=== PATIENT | male | born 1960 | race Caucasian/White ===

== ENCOUNTER → 2023-09-29 06:48 | Day surgery (SDC) | payer OTHER, SELFPAY | LOC: GI 06:48 | PROVIDERS: ATTENDING PHYSICIAN Internal Medicine Gastroenterology; FAMILY PHYSICIAN Internal Medicine Cardiovascular Disease | DX: Z12.11 Encounter for screening for malignant neoplasm of colon (principal); K63.5 Polyp of colon; K57.30 Diverticulosis of large intestine without perforation or abscess without bleeding; K62.1 Rectal polyp; K64.8 Other hemorrhoids; Z86.010 Personal history of colon polyps | CPT/HCPCS: 45385; 45380; 88305 ==

== ENCOUNTER 2024-01-29 16:43 | Emergency (ER) | payer OTHER, SELFPAY ==
[2024-01-29 16:51] VITALS: BP 189/101
[2024-01-29 17:41] LABS: ALT (SGPT) 26 U/L (0-50); AST (SGOT) 30 U/L (17-59); Albumin 4.5 g/dl (3.5-5.0); Alkaline Phosphatase 84 U/L (38-126); Blood Urea Nitrogen 9 mg/dl (9-20); Calcium 9.2 mg/dl (8.4-10.2); Carbon Dioxide 29 mmol/L (22-30); Chloride 102 mmol/L (98-107); Glucose 93 mg/dl (70-99); Sodium 141 mmol/L (135-145); Total Protein 7.2 g/dl (6.3-8.2); eGFR > 60.00
[2024-01-29 17:43] LABS: % Basophils 0.5 % (0-2); % Eosinophils 2.2 % (0-6); % Immature Granulocytes 0.2 % (0-0.5); % Lymphocytes 30.7 % (20.5-51.1); % Monocytes 9.2 % (1.7-9.3); % Neutrophils 57.2 % (42.2-75.2); Absolute Eosinophils 0.1 10^3/uL (0-0.7); Absolute Lymphocytes 1.8 10^3/uL (1.2-3.4); Absolute Monocytes 0.6 10^3/uL (0.1-0.6); Absolute Neutrophils 3.4 10^3/uL (1.4-6.5); Hematocrit 41.9 % (39.0-52.0); Hemoglobin 14.3 g/dL (13.0-18.0); Mean Corp Hgb Conc. 34.1 g/dL (33.0-37.0); Mean Corpuscular Hgb 30.5 pg (27.0-31.0); Mean Corpuscular Volume 89.3 fL (80.0-94.0); Mean Platelet Volume 10.5 fL (7.4-10.4); Nucleated Red Blood Cells % 0 % (-); Platelet Count 274 10^3/uL (130-400); Red Blood Cell Count 4.69 10^6/uL (4.70-6.10); Red Cell Dist. Width 12.1 % (11.5-14.5)
[2024-01-29 20:17] VITALS: BP 186/102
--- NOTE | 2024-01-29 20:41 | ED.GENMED ---
History of Present Illness
<Sharon Manuel MD, Resident - Last Filed: 01/29/24 22:15>
General
Chief Complaint: Blood Pressure Problem
Source: patient and family
Time Seen by Provider: 01/29/24 20:07
History of Present Illness
History of Present Illness:
This is a 63-year-old male patient with past medical history of high blood pressure and BPH who presents to the ED with concerns of elevated blood pressure. He states that he recently started taking a new blood pressure medication losartan 50 Mg
once a day for the past 3 weeks that was started by his PCP. He states that he has been checking his blood pressure every day but has not noticed an improvement stating that his systolic BP has been in the 160s. He also feels as though he is
having heart palpitations and a headache had started this morning. He denies any fever, chills, vision changes or vomiting. He denies any history of falls.
Past History
<Sharon Manuel MD, Resident - Last Filed: 01/29/24 22:15>
Past History
ED Past Medical History: HTN
ED Past Surgical History: None
Social History
Tobacco: Non-smoker
Alcohol: Occasional
Personal:
Living: with family
Employment: Employed
Family History
Family History: Negative Early CAD or Sudden
Review of Systems
<Sharon Manuel MD, Resident - Last Filed: 01/29/24 22:15>
Review of Systems
Constitutional: Denies fever or chills
Respiratory: Denies cough
Cardiac: Reports palpitations; Denies chest pain
ABD/GI: Denies abdominal pain
Neurological: Reports headache; Denies dizzy
Phy Exam
<Sharon Manuel MD, Resident - Last Filed: 01/29/24 22:15>
General Physical Exam
General Presentation: well appearing and no apparent distress
Cardiovascular Exam
Cardiovascular Exam: regular rate/rhythm and no murmur
Heart Sounds: normal
Pulmonary Exam
Pulmonary Exam: lungs clear, no respiratory distress and no crackles
Gastrointestinal Exam
Gastrointestinal Exam: non tender, soft and non distended
Neurological Exam
Neurological Exam: oriented x3
Musculoskeletal Exam
Musculoskeletal Exam: no edema
Skin Exam
Skin Exam: warm/dry
Psychiatric Exam
Psychiatric Exam: normal mood/affect
Course
<Sharon Shreya Manuel MD, Resident - Last Filed: 01/29/24 22:15>
Orders/Labs/Results
Orders:
Orders
01/29/24 16:44
ECG [Electrocardiogram (*1)] Urgent
Reason for Study: Palpitations
EKG- Treatment ONCE
01/29/24 17:06
Complete Blood Count/With Diff Urgent
Comprehensive Metabolic Panel Urgent
01/29/24 21:01
Amlodipine [Norvasc] 5 mg PO NOW STA
Abnormal Lab Results
01/29/24
17:06
RBC 4.69 L 10^6/uL
(4.70-6.10)
MPV 10.5 H fL
(7.4-10.4)
01/29/24 17:06
01/29/24 17:06
Vital Signs
Initial and Last Documented VS:
Initial Vital Signs
Temp Pulse Resp BP Pulse Ox
98.1 F 60 20 189/101 100
01/29/24 16:51 01/29/24 16:51 01/29/24 16:51 01/29/24 16:51 01/29/24 16:51
Last Documented Vital Signs
Temp Pulse Resp BP Pulse Ox
98.1 F 58 20 186/102 98
01/29/24 16:51 01/29/24 20:17 01/29/24 16:51 01/29/24 20:17 01/29/24 20:17
<Casimiro Nolan, DO - Last Filed: 01/29/24 21:02>
Orders/Labs/Results
Orders:
Orders
01/29/24 16:44
ECG [Electrocardiogram (*1)] Urgent
Reason for Study: Palpitations
EKG- Treatment ONCE
01/29/24 17:06
Complete Blood Count/With Diff Urgent
Comprehensive Metabolic Panel Urgent
01/29/24 21:01
Amlodipine [Norvasc] 5 mg PO NOW STA
Abnormal Lab Results
01/29/24
17:06
RBC 4.69 L 10^6/uL
(4.70-6.10)
MPV 10.5 H fL
(7.4-10.4)
01/29/24 17:06
01/29/24 17:06
Vital Signs
Initial and Last Documented VS:
Initial Vital Signs
Temp Pulse Resp BP Pulse Ox
98.1 F 60 20 189/101 100
01/29/24 16:51 01/29/24 16:51 01/29/24 16:51 01/29/24 16:51 01/29/24 16:51
Last Documented Vital Signs
Temp Pulse Resp BP Pulse Ox
98.1 F 58 20 186/102 98
01/29/24 16:51 01/29/24 20:17 01/29/24 16:51 01/29/24 20:17 01/29/24 20:17
<Sharon Manuel MD, Resident - Last Filed: 01/29/24 22:15>
*Critical Care Note
Total Time (30-74mins, 75-104mins- exclusive of procedures): Not Applicable
<Sharon Manuel MD, Resident - Last Filed: 01/29/24 22:15>
Update Note
Update Note:
Patient blood pressure ED 189/101. He now only complains of a headache at the time of examination. He denied any visual changes. EKG with no ischemic changes. He was given a dose of amlodipine. Patient was stable and was discharged with
amlodipine for 2 weeks until he can see his PCP who he has an appointment scheduled with next week.
ED Attending Note
<Sharon Manuel MD, Resident - Last Filed: 01/29/24 22:15>
-
Portions of this chart may have been created with voice recognition software.� Occasional wrong word or��sound alike� substitutions may have occurred due to the inherent limitations of voice recognition software.
<Casimiro Nolan, DO - Last Filed: 01/29/24 21:02>
ED Attending Note
Patient seen and examined by attending physician: Yes
I performed a history and physical exam of patient and discussed management with resident, I reviewed resident's note and agree with documented findings and plan of care.: Yes
ED Attending Note:
I have seen and evaluated the patient with a [id number] encounter. I have spoken to the resident and involved in the medical history, the physical exam, medical decision making.
Evaluation and management service: agree unless noted differently below.
Results interpretation: agree unless noted differently below.
Focused HPI: 63-year-old male presenting for evaluation of elevated blood pressure. He was recently placed on losartan when his PCP found that his blood pressure has been elevated. Patient does acknowledge that he had not really checked his blood
pressure prior to this. He became concerned when he realized his blood pressure was still high over the past few days despite the new medication
Physical exam: Sitting in bed comfortably. Pupils equal reactive. Patient extremely well-appearing and nontoxic. Heart regular rate and rhythm. Lungs clear
Medical Decision Making: Given the elevated blood pressure, blood work was performed. EKG without ischemic changes. Blood work without evidence of endorgan damage. Will add low-dose amlodipine. He has PCP follow-up in 1 week.
Discharge Plan
Departure
Patient Disposition: Home (Routine Discharge)
Date of Disposition: 01/29/24
Time of Disposition: 21:02
Patient with high blood pressure during this ER visit?: Yes
Discharge Problem:
Elevated systolic blood pressure reading with diagnosis of hypertension, Elevated blood pressure reading, Hypertension
Prescriptions:
New
amlodipine 5 mg tablet
5 mg PO DAILY 14 Days Qty: 14 0RF
No Action
hydrocodone-acetaminophen 1 TABLET tablet
1 tab PO Q4HPRN PRN (Reason: pain) Qty: 10 0RF
tamsulosin 0.4 MG capsule
0.4 mg PO DAILY Qty: 7 0RF
diclofenac sodium 75 MG tablet,delayed release (DR/EC)
75 mg PO BID Qty: 10 0RF
Activity Restrictions/Additional Instructions:
If experiencing symptoms such as worsening headaches, vomiting or or vision changes please return to the ER. Take amlodipine once a day until follow-up with PCP. Follow-up with your primary care physician within a week for further management of
hypertension.
Interventions
Interventions:
*Risk Screen - Suicide Last Done: 01/29/24 16:51
*General Assessment Last Done: 01/29/24 16:51
*Neglect/Abuse Screening Last Done: 01/29/24 16:51
ED- Fall Risk Assessment Last Done: 01/29/24 21:10
*ED COVID-19 Vaccine History Last Done: 01/29/24 21:10
*Nursing Disposition Last Done: 01/29/24 21:10
ED- Cardiac Assessment Last Done: 01/29/24 21:10
ED- Neurological Assessment Last Done: 01/29/24 21:10
ED- Pulmonary Assessment Last Done: 01/29/24 21:10
Discharge Date and Time
Discharge Date/Time: 01/29/24 21:11
Print Language: [id number]
[2024-01-29] MEDS: NORVASC 5 MG PO (21:05)
== END 2024-01-29 21:11 | disposition home or self-care (01) ==
LOC: EMR 16:43
PROVIDERS: Emergency Medicine; EMERGENCY PHYSICIAN Student in an Organized Health Care Education/Training Program
DX: I10 Essential (primary) hypertension (principal); R51.9 Headache, unspecified; R00.2 Palpitations; N40.0 Benign prostatic hyperplasia without lower urinary tract symptoms; Z79.899 Other long term (current) drug therapy; Z91.018 Allergy to other foods
CPT/HCPCS: 99283; 80053; 85025; 93005